=== PATIENT | female | born 1935 | race Caucasian/White ===

== ENCOUNTER 2021-02-27 17:44 | Inpatient (IN) | payer MEDICARE, MEDICAID ==
[~2021-02-27] VITALS: Ht 165.1 cm; Wt 72.6 kg
[2021-02-27 17:47] VITALS: BP 116/74
[2021-02-27 18:21] LABS: URINE BLOOD 3+ (Negative); URINE CLARITY CLOUDY; URINE COLOR RED; URINE GLUCOSE-RANDOM NEGATIVE (Negative); URINE KETONES TRACE (Negative); URINE LEUKOCYTES-REFLEX 1+ (Negative); URINE PROTEIN 3+ (Negative)
[2021-02-27 18:24] LABS: ICTOTEST (BILI CONFIRMATORY) Negative (Negative); URINE BILIRUBIN 1+ (Negative); URINE NITRITE-REFLEX POSITIVE (Negative)
[2021-02-27 18:27] LABS: URINE RBC >20 Many /HPF (0-2)
[2021-02-27 18:28] LABS: BACTERIA-REFLEX 1-9 Few /HPF (None Seen); CASTS None Seen /LPF (None Seen); CRYSTALS None Seen /LPF (None Seen); MUCUS None Seen strn/LPF (None Seen); SQUAMOUS 0-3 Few /LPF (0-3); URINE WBC-REFLEX 0-5 Rare /HPF (0-5)
[2021-02-27 18:53] LABS: ABSOLUTE BASOPHILS 0.1 thou/uL (0.0-0.2); ABSOLUTE EOSINOPHILS 0.4 thou/uL (0.0-0.7); ABSOLUTE LYMPHOCYTES 0.6 thou/uL (0.8-5.3); ABSOLUTE MONOCYTES 1.1 thou/uL (0.0-1.2); ABSOLUTE NEUTROPHILS 8.3 thou/uL (1.6-8.1); BASOPHILS 0.7 %; EOSINOPHILS 3.9 %; HEMATOCRIT 34.2 % (37.0-47.0); HEMOGLOBIN 11.1 gm/dL (12.0-15.0); LYMPHOCYTES 5.6 %; MCH 27.7 pg (26.0-34.0); MCHC 32.3 g/dL (28.0-37.0); MCV 85.6 fL (80.0-100.0); MONOCYTES 10.1 %; MPV 6.8 fl. (7.2-11.1); NUCLEATED RBCS 0 /100WBC; PLATELET COUNT* 440 thou/uL (150-400); POLYS 79.7 %; RDW-CV 15.2 % (10.5-14.5); WBC 10.5 thou/uL (4.0-11.0)
[2021-02-27 18:57] LABS: CALCIUM 8.7 mg/dL (8.5-10.1); CREATININE 1.2 mg/dL (0.6-1.3); POTASSIUM 5.5 mmol/L (3.5-5.1)
[2021-02-27 19:02] LABS: ALBUMIN 3.3 g/dL (3.4-5.0); TOTAL BILIRUBIN 0.5 mg/dL (<0.1-1.0); TOTAL PROTEIN 7.7 g/dL (6.4-8.2)
[2021-02-27] MEDS ORDERED: LACTULOSE PO (19:33)
[2021-02-27] MEDS ORDERED: ST. JOSEPH ASPI81 MG PO (19:34)
[2021-02-27] MEDS ORDERED: ATIVAN0.5 M1 PO (19:34)
[2021-02-27] MEDS ORDERED: ATIVAN1 M1 PO (19:35)
[2021-02-27] MEDS ORDERED: ATORVASTATIN CA20 MG PO (19:35)
[2021-02-27] MEDS ORDERED: BIOFREEZE118 ML TOP (19:36)
[2021-02-27] MEDS ORDERED: BUSPIRONE HCL10 MG PO (19:36)
[2021-02-27] MEDS ORDERED: FLONASE 0.05%50 MCG NARES (19:38)
[2021-02-27] MEDS ORDERED: FUROSEMIDE 20 M20 MG PO (19:38)
[2021-02-27] MEDS ORDERED: COLACE 100 MG100 MG PO (19:38)
[2021-02-27] MEDS ORDERED: ASPERCREME1 EACH TOP (19:39)
[2021-02-27] MEDS ORDERED: IBUPROFEN 400400 M2 PO (19:39)
[2021-02-27] MEDS ORDERED: MIRALAX119 GM PO (19:40)
[2021-02-27] MEDS ORDERED: MELATIN3 MG PO (19:40)
[2021-02-27] MEDS ORDERED: MELOXICAM15 MG PO (19:40)
[2021-02-27] MEDS ORDERED: NORCO5 PO (19:42)
[2021-02-27] MEDS ORDERED: PRILOSEC OTC20 MG PO (19:42)
[2021-02-27] MEDS ORDERED: KLOR-CON 10 ER10 MEQ PO (19:42)
[2021-02-27] MEDS ORDERED: PROZAC40 MG PO (19:43)
[2021-02-27] MEDS ORDERED: PROAIR HFA8.5 GM INH (19:43)
[2021-02-27] MEDS ORDERED: TESSALON PERLE100 M1 PO (19:43)
[2021-02-27 23:31] VITALS: BP 110/70
[2021-02-28 03:13] VITALS: BP 115/68
--- NOTE | 2021-02-28 07:15 | NUR ---
SPOKE WITH SON, MONSE (DPOA) THIS AM. PER SON, HIS PREFERENCE IS TO HAVE PT DISCHARGE BACK TO [facility], BUT IF THERE IS A NEED TO KEEP HER IN THE HOSPITAL, HE WANTS TO BE UPDATED ON HER CONDITION REGULARLY. THIS NURSE VERBALIZED UNDERSTANDING & WILL SO ADVISE HOSPITALIST.
[2021-02-28 10:00] VITALS: BP 127/77
[2021-02-28 17:46] VITALS: BP 109/51
--- NOTE | 2021-02-28 23:00 | NUR ---
ASSUMED CARE FOR THIS PATIENT AT THIS TIME.
[2021-02-28 23:05] VITALS: BP 104/43
--- NOTE | 2021-02-28 23:08 | NUR ---
SPOKE WITH NURSE AT [facility] TO INFORM THEM OF PT'S NEGATIVE COVID RESULT. THEY ARE WILLING TO ACCEPT THE PATIENT AT THEIR FACILITY NOW DUE TO THE NEGATIVE COVID RESULT.
--- NOTE | 2021-02-28 23:30 | NUR ---
SPOKE WITH DR. GARCIA REGARDING NEGATIVE COVID RESULT AND POTENTIAL DISCHARGE. DR. GARCIA IS GOING TO REVIEW THE CHART AND CALL ME BACK.
[2021-02-28] MEDS ORDERED: MACROBID 100 M100 M2 PO (23:36)
[2021-03-01 00:21] LABS: HEMATOCRIT 26.8 % (37.0-47.0); MCH 27.7 pg (26.0-34.0); MCHC 32.6 g/dL (28.0-37.0); MCV 85.1 fL (80.0-100.0); MPV 6.7 fl. (7.2-11.1); RBC 3.15 mil/uL (4.20-5.00); WBC 6.6 thou/uL (4.0-11.0)
[2021-03-01 00:31] LABS: HEMOGLOBIN 8.7 gm/dL (12.0-15.0)
--- NOTE | 2021-03-01 01:12 | NUR ---
SPOKE WITH SON MONSE; REPORTED THAT THE PTS HGB DROP TO 8.7; CURRENTLY AWAITING DR PERKINS RETURN CALL TO SEE IF WE WILL CONTINUE WITH DISCHARGE; SON STATED TO CONTINUE WITH DISCHARGE IF APPROVED BY DR GARCIA, AND HE WILL CALL IN THE AM TO CHECK AND SEE IF SHE WAS DISCHARGED OR REMAINS INPATIENT
--- NOTE | 2021-03-01 01:35 | NUR ---
SPOKE WITH DR. GARCIA REGARDING HGB. DR. GARCIA STATES WE WILL NOT DISCHARGE THE PATIENT AND WE WILL RECHECK THE HGB IN THE MORNING.
[2021-03-01 03:12] VITALS: BP 97/55
[2021-03-01 07:15] VITALS: BP 97/55
[2021-03-01 07:23] LABS: ABSOLUTE BASOPHILS 0.1 thou/uL (0.0-0.2); ABSOLUTE EOSINOPHILS 0.5 thou/uL (0.0-0.7); ABSOLUTE LYMPHOCYTES 0.4 thou/uL (0.8-5.3); ABSOLUTE MONOCYTES 0.8 thou/uL (0.0-1.2); ABSOLUTE NEUTROPHILS 5.6 thou/uL (1.6-8.1); BASOPHILS 0.9 %; EOSINOPHILS 7.4 %; HEMATOCRIT 28.5 % (37.0-47.0); HEMOGLOBIN 9.2 gm/dL (12.0-15.0); LYMPHOCYTES 5.1 %; MCH 27.5 pg (26.0-34.0); MCHC 32.4 g/dL (28.0-37.0); MONOCYTES 10.8 %; MPV 6.6 fl. (7.2-11.1); NUCLEATED RBCS 0 /100WBC; PLATELET COUNT* 306 thou/uL (150-400); POLYS 75.8 %; RBC 3.36 mil/uL (4.20-5.00); RDW-CV 14.8 % (10.5-14.5); WBC 7.4 thou/uL (4.0-11.0)
--- NOTE | 2021-03-01 09:16 | NUR ---
SPOKE WITH DR. SANTIAGO, PT IS OK TO BE DISCHARGED AFTER THIRD DOSE OF ROCEPHIN SON NOTIFIED
[2021-03-01 11:56] VITALS: BP 132/71
== END 2021-03-01 11:55 | disposition home or self-care (01) | DRG 690 ==
LOC: M.ERS 17:44 → M.TBA-ER 19:38
PROVIDERS: Internal Medicine; Nurse Practitioner Family; ADMIT Family Medicine; ATTEND Family Medicine
DX: N30.01 Acute cystitis with hematuria (principal); F03.90 Unspecified dementia, unspecified severity, without behavioral disturbance, psychotic disturbance, mood disturbance, and anxiety; Z66 Do not resuscitate; N36.8 Other specified disorders of urethra; Z90.49 Acquired absence of other specified parts of digestive tract; Z90.710 Acquired absence of both cervix and uterus; Z88.8 Allergy status to other drugs, medicaments and biological substances; Z20.822 Contact with and (suspected) exposure to COVID-19

== ENCOUNTER 2021-04-26 13:35 | Emergency (ER) | payer MEDICARE, MEDICAID ==
[~2021-04-26] VITALS: Ht 157.5 cm; Wt 58.8 kg
[~2021-04-26 13:35] MED LIST: ASPERCREME1 EACH TOP; ATIVAN0.5 M1 PO; ATIVAN1 M1 PO; ATORVASTATIN CA20 MG PO; BIOFREEZE118 ML TOP; BUSPIRONE HCL10 MG PO; COLACE 100 MG100 MG PO; FLONASE 0.05%50 MCG NARES; FUROSEMIDE 20 M20 MG PO; IBUPROFEN 400400 M2 PO; KLOR-CON 10 ER10 MEQ PO; LACTULOSE PO; MACROBID 100 M100 M2 PO; MELATIN3 MG PO; MELOXICAM15 MG PO; MIRALAX119 GM PO; NORCO5 PO; PRILOSEC OTC20 MG PO; PROAIR HFA8.5 GM INH; PROZAC40 MG PO; ST. JOSEPH ASPI81 MG PO; TESSALON PERLE100 M1 PO
[2021-04-26] MEDS ORDERED: BIOFREEZE118 ML TOP (14:07)
[2021-04-26] MEDS ORDERED: CENTRUM SILVER1 EAC6 PO (14:08)
[2021-04-26] MEDS ORDERED: MIRALAX119 GM PO (14:09)
[2021-04-26] MEDS ORDERED: VOLTAREN ARTHRI20 GM TOP (14:12)
[2021-04-26] MEDS ORDERED: ACETAMINOPHEN PO (14:13)
[2021-04-26 15:38] VITALS: BP 106/50
== END 2021-04-26 15:39 | disposition home or self-care (01) ==
LOC: M.ERS 13:35
DX: S00.83XA Contusion of other part of head, initial encounter (principal); M25.552 Pain in left hip; J44.9 Chronic obstructive pulmonary disease, unspecified; I48.91 Unspecified atrial fibrillation; F03.90 Unspecified dementia, unspecified severity, without behavioral disturbance, psychotic disturbance, mood disturbance, and anxiety; K21.9 Gastro-esophageal reflux disease without esophagitis; E78.5 Hyperlipidemia, unspecified; Z90.89 Acquired absence of other organs; Z90.49 Acquired absence of other specified parts of digestive tract; Z90.711 Acquired absence of uterus with remaining cervical stump; Z79.82 Long term (current) use of aspirin; Z79.899 Other long term (current) drug therapy; Z88.1 Allergy status to other antibiotic agents; W19.XXXA Unspecified fall, initial encounter; Y93.89 Activity, other specified; Y92.89 Other specified places as the place of occurrence of the external cause; Y99.8 Other external cause status